=== PATIENT | male | born 1970 | race African-American/Black ===

== ENCOUNTER 2017-04-20 18:40 | Emergency (ER) | payer OTHER ==
[~2017-04-20] VITALS: Ht 170.2 cm; Wt 84.8 kg
[~2017-04-20 18:40] MED LIST: FLEXERIL PO; ULTRAM 50MG TAB50 MG PO
[2017-04-20] MEDS ORDERED: TRAMADOL 50 MG50 MG PO (19:21)
[2017-04-20 20:10] VITALS: BP 136/92
== END 2017-04-20 20:10 | disposition home or self-care (01) ==
LOC: ER 18:40
DX: J03.00 Acute streptococcal tonsillitis, unspecified (principal)

== ENCOUNTER 2017-10-06 13:56 | Emergency (ER) | payer OTHER ==
[~2017-10-06] VITALS: Ht 170.2 cm; Wt 83.0 kg
[~2017-10-06 13:56] MED LIST changes: +TRAMADOL 50 MG50 MG PO
[2017-10-06 15:16] LABS: ABSOLUTE NEUTROPHILS 2.6 thou/uL (1.4-8.2); BASOPHILS 0.7 % (0.0-2.0); EOSINOPHILS 0.6 % (0.0-3.0); HEMATOCRIT 42.9 % (42.0-52.0); HEMOGLOBIN 14.1 gm/dL (14.0-18.0); LYMPHOCYTES 34.7 % (24.0-44.0); MCH 27.7 pg (26.0-34.0); MCHC 32.9 g/dL (28.0-37.0); MCV 84.3 fL (80.0-100.0); MONOCYTES 5.4 % (1.0-8.0); PLATELET COUNT 174 thou/uL (150-400); POLYS 58.6 % (36.0-66.0); RBC 5.09 mil/uL (4.50-6.00); RDW 14.4 % (10.5-14.5); WBC 4.5 thou/uL (4.0-11.0)
[2017-10-06 15:31] LABS: URINE BILIRUBIN NEGATIVE (Negative); URINE BLOOD NEGATIVE (Negative); URINE CLARITY CLEAR; URINE COLOR YELLOW; URINE GLUCOSE-RANDOM* NEGATIVE (Negative); URINE KETONES NEGATIVE (Negative); URINE LEUKOCYTES-REFLEX NEGATIVE (Negative); URINE NITRITE-REFLEX NEGATIVE (Negative); URINE PROTEIN (DIPSTICK) NEGATIVE (Negative)
[2017-10-06 15:33] LABS: CALCIUM 9.2 mg/dL (8.5-10.1); CREATININE 1.1 mg/dL (0.7-1.3); POTASSIUM 3.8 mmol/L (3.5-5.1)
[2017-10-06 15:39] LABS: TOTAL PROTEIN 7.6 g/dL (6.4-8.2)
[2017-10-06 15:50] LABS: TOTAL BILIRUBIN 0.3 mg/dL (<0.1-1.0)
[2017-10-06] MEDS ORDERED: PRILOSEC 20 MG20 MG PO (16:08)
== END 2017-10-06 16:52 | disposition home or self-care (01) ==
LOC: ER 13:56
PROVIDERS: Emergency Medicine
DX: R51 Headache (principal)

== ENCOUNTER 2019-05-31 21:11 | Emergency (ER) | payer BC, OTHER ==
[~2019-05-31] VITALS: Ht 170.2 cm; Wt 81.7 kg
[~2019-05-31 21:11] MED LIST changes: +PRILOSEC 20 MG20 MG PO
[2019-05-31 23:04] LABS: URINE BILIRUBIN NEGATIVE (Negative); URINE BLOOD NEGATIVE (Negative); URINE CLARITY CLEAR; URINE COLOR YELLOW; URINE GLUCOSE-RANDOM* NEGATIVE (Negative); URINE KETONES NEGATIVE (Negative); URINE LEUKOCYTES-REFLEX NEGATIVE (Negative); URINE NITRITE-REFLEX NEGATIVE (Negative); URINE PROTEIN (DIPSTICK) NEGATIVE (Negative); URINE SPECIFIC GRAVITY 1.025 (1.005-1.035); URINE UROBILINOGEN 0.2 E.U./dl (0.2-1.0)
[2019-06-01 00:49] VITALS: BP 112/87
== END 2019-06-01 01:03 | disposition home or self-care (01) ==
LOC: ER 21:11
PROVIDERS: Emergency Medicine
DX: N43.3 Hydrocele, unspecified (principal)